=== PATIENT | female | born 1975 | race African-American/Black ===

== ENCOUNTER 2017-07-27 00:32 | Emergency (ER) | payer OTHER | END 2017-07-27 03:40 | disposition home or self-care (01) | LOC: FTE 00:32 | DX: S81.852A Open bite, left lower leg, initial encounter (principal); W54.0XXA Bitten by dog, initial encounter; Y92.9 Unspecified place or not applicable | CPT/HCPCS: 99283; Z7502 ==

== ENCOUNTER 2018-12-03 18:50 | Emergency (ER) | payer OTHER ==
[2018-12-03] MEDS: IBUPROFEN 600 MG TAB PO (20:11)
== END 2018-12-03 22:17 | disposition home or self-care (01) ==
LOC: FTE 18:50
DX: M77.32 Calcaneal spur, left foot (principal)
CPT/HCPCS: 73610; 73630-LT; 99283-25